=== PATIENT | male | born 1950 | race Caucasian/White ===

== ENCOUNTER 2020-10-18 12:08 | Emergency (ER) | payer MEDICARE, OTHER ==
[~2020-10-18 12:08] MED LIST: LEVAQUIN750 MG PO
[2020-10-18 13:07] LABS: BASOPHIL 0.3 % (0-2); EOSINOPHIL 2.4 % (0-7); HCT 38.7 % (42.0-52.0); HGB 12.5 g/dl (13.2-18.0); LYMPHOCYTE 21.1 % (15-48); MCH 29.2 pg (25.0-31.0); MCHC 32.3 g/dL (32.0-36.0); MCV 90.4 fL (78.0-100.0); MONOCYTE 7.2 % (0-12); NEUTROPHIL 68.7 % (41-80); NRBC 0; PLT 220 K/uL (150-400); RBC 4.28 M/uL (4.70-6.00); RDW 12.8 % (11.5-14.0); WBC 9.1 K/uL (4.0-10.5)
[2020-10-18 13:25] LABS: BUN/CREAT RATIO (CALC) 14.9 RATIO; CREATININE 0.94 mg/dL (0.67-1.17); POTASSIUM 4.2 mmol/L (3.5-5.1)
== END 2020-10-18 15:15 | disposition home or self-care (01) ==
LOC: FER 12:08
PROVIDERS: Emergency Medicine
DX: I10 Essential (primary) hypertension (principal); R42 Dizziness and giddiness; E11.9 Type 2 diabetes mellitus without complications; Z87.442 Personal history of urinary calculi; Z85.46 Personal history of malignant neoplasm of prostate; Z91.013 Allergy to seafood; Z20.822 Contact with and (suspected) exposure to COVID-19
CPT/HCPCS: 36415; 80048; 84484; 85025; 93005; J0780; J1885; J7030; U0002